=== PATIENT | female | born 1985 ===

== ENCOUNTER → 2017-10-12 | Outpatient (REF) | payer OTHER | LOC: M LAB REF 12:17 | DX: R30.0 Dysuria (principal) ==

== ENCOUNTER → 2017-11-26 | Outpatient (REF) | payer OTHER | LOC: M LABDRAW1 17:35 | DX: Z34.01 Encounter for supervision of normal first pregnancy, first trimester (principal) ==

== ENCOUNTER → 2018-05-10 | Outpatient (REF) | payer OTHER | LOC: M LAB REF 16:38 | PROVIDERS: ATTEND Nurse Practitioner Women's Health | DX: Z34.83 Encounter for supervision of other normal pregnancy, third trimester (principal); Z3A.00 Weeks of gestation of pregnancy not specified ==